=== PATIENT | female | born 1950 | race Caucasian/White ===

== ENCOUNTER → 2017-01-14 | Outpatient (CLI) | payer MEDICARE ==
[~2017-01-14] MED LIST: CARAFATE1 GM PO; FLONASE 50 MCG16 GM; LISINOPRIL 5MG T5 MG PO; MECLIZINE HYDRO25 MG PO; METOPROLOL TAR100 MG PO; RANITIDINE HCL300 M1 PO; ZITHROMAX Z PA250 MG PO
[2017-01-14 15:02] LABS: LYMPH % 47.3 % (10-50.0)
[2017-01-14 17:26] LABS: BUN 11 mg/dL (7-18)
[2017-01-14 17:58] LABS: GFR (ESTIMATED) 72 ML/MIN (59-)
--- NOTE | 2017-01-23 10:44 | RADIOLOGY REPORT PS360 ---
EXAM: CERVICAL SPINE 4 OR 5 VIEWS HISTORY: CERVICALGIA ORDERING PHYSICIAN: Neli SINGLETON PATIENT AGE: 66 years COMPARISON: None FINDINGS: Normal alignment. No fracture or dislocation. No lytic or blastic change. There is straightening of the cervical lordosis. 2 mm anterolisthesis C4 on 5. Degenerative disc disease seen 6 C7 and C7-T1. There are some mild endplate osteophytes at C6-C7 with facet and uncovertebral hypertrophy. There is bilateral foraminal narrowing at C6-C7. IMPRESSION: 1. Degenerative disc disease with facet hypertrophic change in bilateral foraminal narrowing at C6-C7 with mild degenerative disc disease at C7-T1 IMPRESSION: No acute finding
== END ==
LOC: LAB 14:37
PROVIDERS: Nurse Practitioner Family
DX: R55 Syncope and collapse (principal); R20.0 Anesthesia of skin; M54.2 Cervicalgia

== ENCOUNTER 2017-01-23 22:03 | Observation (INO) | payer MEDICARE ==
[~2017-01-23] VITALS: Ht 157.5 cm; Wt 64.6 kg
[2017-01-23 22:11] VITALS: BP 171/103
[2017-01-23] MEDS ORDERED: FLONASE 50 MCG16 GM (22:21)
[2017-01-23] MEDS ORDERED: METOPROLOL TAR100 MG PO (22:22)
[2017-01-23] MEDS ORDERED: CARAFATE1 GM PO (22:23)
[2017-01-23] MEDS ORDERED: RANITIDINE HCL300 M1 PO (22:23)
[2017-01-23] MEDS ORDERED: MECLIZINE HYDRO25 MG PO (22:24)
[2017-01-23 22:28] LABS: LYMPH # 8.4 K/mm3 (0.7-4.5); LYMPH % 59.6 % (10-50.0)
[2017-01-23 22:48] LABS: BUN 15 mg/dL (7-18); GFR (ESTIMATED) 55 ML/MIN (59-)
[2017-01-23 23:05] LABS: NEUTROPHILS 39 % (42-76)
--- NOTE | 2017-01-23 23:32 | Emergency Room Report ---
History of Present Illness Time Seen by [id number] Presenting Problem in Triage Pt arrived:Wheelchair Presenting Problem:C/O DIZZINESS AND FELT LIKE SHE WAS GONNA PASS OUT. STATES SHE HAS HAD THIS PROBLEM OFF AND ON FOR 8 MONTHS TO A YEAR. SAW PCP ON FRIDAY AND HAD LABS AND X RAYS. 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 N Clinical Suspician of Infection? N Mental Status: 1 - Regular (Normal Baseline) Sepsis Risk:Low Sepsis Risk Have you (or family members/close friends) recently traveled outside the [place]? N If Yes, where/when: Have you had exposure to infectious disease within the past month? N TB? Other? Specify: Source patient, RN notes reviewed, family, old records Exam Limitations no limitations Comment pt with episode of sudden dizzyness and near syncope with no loc and no chest pain or sense of arrthymia- no speech or visual sx and no motor changes but weak feeling in ext but no sz reported and no incont- no trauma - she has had eval and rx for dizzyness- Cardiac Chest Pain Chest pain indicative of cardiac No Timing/Duration this evening Severity moderate ALLERGIES Coded Allergies: codeine (NA-NAUSEA 01/23/17) Home Medications Reported Medications Fluticasone Propionate (Flonase 50 Mcg Nasal [place]) 1 SPRAY NA DAILY #16 Metoprolol Tartrate (Metoprolol 100MG) 100 MG PO BID #180 Sucralfate (Carafate) 1 GM PO DAILY #60 Ranitidine Hcl (Ranitidine 300MG) 300 MG PO QHS #30 Meclizine Hcl (Meclizine Hydrochloride) 25 MG PO TIDP PRN DIZZINESS History Medical History General CAD? No Angina: No [place]: No Hypertension? Yes Hyperlipidemia? No CHF? No DVT? No PE? No COPD? No Asthma? No Anemia? No GERD? Yes Gastric ulcers? No GI Bleed? No Hernia? No Thyroid Problems? No Hypothyroidism? No CVA? No Seizures? No Diabetes? No End Stage Renal Disease? No UTI? Yes Stones? No BPH? No GB Disease: No Nephritic Syndrome? No Asplenia? No Hepatitis? No Sickle Cell Disease? No Migraines? No Cataracts? No Glaucoma? No MRSA? No HIV? No TB? No Anxiety? No Depression? No Cancer? No Immunization Hx DT/Tetanus 1-4 YRS Surgical Hx Previous Surgery?Y Cholecystectomy APPY Spleen Procedures Social History Smoking Hx Smoker: Never Smoker Tobacco: No Alcohol Alcohol: No Drugs none Review of Systems All Other Systems Reviewed and Negative Constitutional see HPI, denies fever, weakness Eyes denies drainage, denies vision change ENT denies: ear discharge, epistaxis, throat pain. Respiratory denies cough, denies shortness of breath, denies wheezing Cardiovascular see HPI, denies chest pain, denies palpitations, denies syncope, other Gastrointestinal see HPI, denies abdominal pain, nausea, denies vomiting Genitourinary denies: dysuria, frequency, hesitancy, hematuria. Musculoskeletal denies back pain, denies joint pain, denies joint swelling, denies neck pain Skin denies rash Psychiatric/Neurological see HPI, denies headache, denies paresthesia, denies seizure, tingling Physical Exam Vital Signs Vital Signs Date Time Temp Pulse Resp B/P Pulse O2 O2 Flow FiO2 Ox Delivery Rate 01/23 2336 77 20 147/90 96 01/23 2304 69 20 151/86 95 01/23 2225 97.7 69 20 175/89 96 01/23 2211 97.7 73 20 171/103 97 - WBC >12,000 or <4,000 or 10% bands? 2 or more SIRS Criteria Met? B/P:147/90 MAP:125 Creatinine >2.0? UA output<0.5ml/kg/hr for 2 hrs? Platelet count >100,000? Lactate >2.0mmol/1? INR >1.2 or PTT > than 60 sec? Evidence of Organ Dysfunction? Provider documented clinical suspician of infection? N Sepsis Criteria Count: 1 Sepsis Risk: Low Sepsis Risk General Appearance no apparent distress Eye Exam - bilateral eye PERRL, bilateral eye EOMI Comment no nystagmus Ear, Nose, Throat normal ENT inspection, no evid of tongue biting Neck supple, sl bruit on lt Respiratory Status No: respiratory distress. Lung Sounds bilateral: lungs clear. 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 No Results/Orders Laboratory Tests 01/23/172205: Sodium 140, Potassium 4.1, Chloride 102, Carbon Dioxide 29, BUN 15, Creatinine 1.0, Estimated Creat Clear 57, Estimated GFR (MDRD) 55 L, Glucose 131 H, Calcium 9.6, Total Bilirubin 0.7, AST 50 H, ALT 62, Alkaline Phosphatase 96, Creatine Kinase 99, CK-MB (CK-2) Rel Index 0.5, CK and CKMB Interp < 0.5, Troponin I < 0.02, Total Protein 8.5 H, Albumin 4.0, Globulin 4.5 H, Albumin/ Globulin Ratio 0.9 L, WBC 14.1 H, RBC 5.24, Hgb 17.0 H, Hct 49.7 H, MCV 94.9 , RDW 12.9, Plt Count 294, MPV 8.9, Gran % 28.6 L, Gran # 4.0, Total Counted 100, Lymphocytes % 59.6 H, Monocytes % 6.2, Eosinophils % 4.5, Basophils % 1.0, Neutrophils 39 L, Lymphocytes (Manual) 51 H, Lymphocytes # 8.4 H, Monocytes ( Manual) 2, Monocytes # 0.9, Eosinophils # 0.6 H, Eosinophils # (Manual) 7 H, Basophils # 0.1, Basophils # (Manual) 1, Platelet Estimate NORMAL, Anisocytosis 1+, PUBS MCHC 34.2, MCH 32.5 H Current Medication Orders Sig/Pao Start time Last Medication Dose Route Stop Time Status Admin Sodium Chloride 10 ML PRN PRN 01/23 2230 AC IV 01/25 2216 Orders Procedure Date/time Status DIET-NOTHING BY MOUTH 01/24 B Active URINALYSIS/COMPLETE 01/230 Active Decision to admit 01/23 2335 Active CHEST(2 VIEWS-NOT PORTABLE) 01/[address] HEAD W/O CONTRAST 01/23 2219 Active 12 LEAD EKG-BESSON (INITIAL) 01/23 2217 Active ELECTROCARDIOGRAM REQUEST 01/[address] HEAD REQ 01/23 2217 Complete IV SALINE LOCK 01/23 2217 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
[2017-01-23 23:56] LABS: URINE BILIRUBIN - DIPSTICK NEGATIVE (NEG); URINE BLOOD NEGATIVE (NEG)
[2017-01-24] VITALS (7 sets, daily range): BP systolic 134–162; BP diastolic 71–85
--- NOTE | 2017-01-24 04:43 | RADIOLOGY REPORT PS360 ---
CHEST(2 VIEWS-NOT PORTABLE) HISTORY: Cough NEAR SYNCOPE ORDERING PHYSICIAN: Jj Harris MD PATIENT AGE: 66 years COMPARISON: None available FINDINGS: There is mild cardiomegaly without failure. Minimal atelectatic changes are present in the right lung base with patchy infiltrate in the right lower lobe. No obvious effusion. There is a pectus deformity. No acute bony anomalies. IMPRESSION: Right lower lobe infiltrate. Cardiomegaly
--- NOTE | 2017-01-24 05:27 | RADIOLOGY REPORT PS360 ---
CT HEAD W/O CONTRAST HISTORY: NEAR SYNCOPE AND DIZZY ORDERING PHYSICIAN: Jj Harris MD PATIENT AGE: 66 years COMPARISON: 03/04/2009 TECHNIQUE: Axial images obtained without contrast. Brain and bone windows reviewed. FINDINGS: No midline shift, mass effect, intracranial hemorrhage, hydrocephalus, or extra-axial fluid collection is evident. The calvarium has an unremarkable appearance. No mastoid effusion. Mild mucosal thickening ethmoid sinuses and frontal sinus on the right. IMPRESSION: Negative CT head without contrast. No acute finding.
--- NOTE | 2017-01-24 07:16 | Discharge Summary Standard ---
Demographics: Admit date: 01/23/17 Chief complaint: Lightheadedness PRIMARY DIAGNOSIS: near syncope Allergies: Coded Allergies: codeine (NA-NAUSEA 01/23/17) History of present illness: History of present illness: 66-year-old female with history of hypertension presented to the emergency department after a prolonged episode of feeling lightheaded as if she was about to pass out. Patient has been having similar episodes, although not quite as intense, for the last 6 months. Patient attributes some of these episodes to sinus related issues. She describes yesterday being out and about with her son. Towards the end of the day she was on her feet for a prolonged period of time and she began to feel lightheaded and had some difficulty carrying on conversation. When she felt as if she was going to pass out she sat down. Patient did recover but because of the prolonged nature of the event she was brought to the emergency department. Patient admitted to some headache. She denies chest pain or pressure. She does admit to a slight cough that has been nonproductive and some mild shortness of breath yesterday with exertion. In the emergency department her white blood cell count was elevated and she had a questionable LEFT carotid bruit. Patient was admitted for monitoring with orders for echocardiogram and carotid Doppler today. Since admission her chest x-ray has been read by the radiologist believes there is a RIGHT lower lobe infiltrate present. Patient denies fevers or chills. Past medical history: Family HX Family Hx Insignificant No Diabetes Yes CAD No Hypertension Yes Hyperlipidemia No Cancer Yes TB No Immunization HX DT/Tetanus 1-4 YRS Pneumonia Never Had TB Test in last year No General CAD? No Angina: No [place]: No Hypertension? Yes Hyperlipidemia? No CHF? No DVT? No PE? No COPD? No Asthma? No Anemia? No GERD? Yes Gastric ulcers? No GI Bleed? No Hernia? No Thyroid Problems? No Hypothyroidism? No CVA? No Seizures? No Diabetes? No UTI? Yes Stones? No BPH? No GB Disease: No Nephritic Syndrome? No Asplenia? No Hepatitis? No Sickle Cell Disease? No Migraines? No Cataracts? No Glaucoma? No MRSA? No HIV? No TB? No Anxiety? No Depression? No Cancer? No Past Surgical HX Previous Surgery?Y Cholecystectomy APPY Spleen Procedures Current home meds: Reported Medications Fluticasone Propionate (Flonase 50 Mcg Nasal [place]) 1 SPRAY NA DAILY #16 Metoprolol Tartrate (Metoprolol 100MG) 100 MG PO BID #180 Sucralfate (Carafate) 1 GM PO DAILY #60 Ranitidine Hcl (Ranitidine 300MG) 300 MG PO QHS #30 Meclizine Hcl (Meclizine Hydrochloride) 25 MG PO TIDP PRN DIZZINESS Social Hx: Smoking HX Tobacco No Are you/the child exposed to second-hand smoke: Yes Alcohol Alcohol: No Hx of Drug Use Drug Use? No Review of systems: Constitutional see HPI. Respiratory see HPI. Cardiovascular see HPI Gastrointestinal/Abdominal no symptoms reported Genitourinary no symptoms reported. Musculoskeletal no symptoms reported. Neurological Yes: no symptoms reported. Exam: Lab data for last 24 hours: Laboratory Tests 01/23/17 2349: Urine Color YELLOW, Urine Appearance CLEAR, Urine pH 6.0, Ur Specific [place] <= 1.005, Urine Protein NEGATIVE, Urine Ketones NEGATIVE, Urine Blood NEGATIVE, Urine Nitrate NEGATIVE, Urine Bilirubin NEGATIVE, Urine Urobilinogen 0.2, Ur Leukocyte Esterase NEGATIVE, Urine WBC OCC, Ur Squamous Epith Cells 3-5, Urine Bacteria 1+, Urine Glucose NEGATIVE 01/23/17 2206: Sodium 140, Potassium 4.1, Chloride 102, Carbon Dioxide 29, BUN 15, Creatinine 1.0, Estimated Creat Clear 57, Estimated GFR (MDRD) 55 L, Glucose 131 H, Calcium 9.6, Total Bilirubin 0.7, AST 50 H, ALT 62, Alkaline Phosphatase 96, Creatine Kinase 99, CK-MB (CK-2) Rel Index 0.5, CK and CKMB Interp < 0.5, Troponin I < 0.02, Total Protein 8.5 H, Albumin 4.0, Globulin 4.5 H, Albumin/ Globulin Ratio 0.9 L, WBC 14.1 H, RBC 5.24, Hgb 17.0 H, Hct 49.7 H, MCV 94.9 , RDW 12.9, Plt Count 294, MPV 8.9, Gran % 28.6 L, Gran # 4.0, Total Counted 100, Lymphocytes % 59.6 H, Monocytes % 6.2, Eosinophils % 4.5, Basophils % 1.0, Neutrophils 39 L, Lymphocytes (Manual) 51 H, Lymphocytes # 8.4 H, Monocytes ( Manual) 2, Monocytes # 0.9, Eosinophils # 0.6 H, Eosinophils # (Manual) 7 H, Basophils # 0.1, Basophils # (Manual) 1, Platelet Estimate NORMAL, Anisocytosis 1+, PUBS MCHC 34.2, MCH 32.5 H Admission vital signs: 1ST Vital Signs Result Date Time Pulse Ox 97 01/23 2211 B/P 171/103 01/23 2211 Temp 97.7 01/23 2211 Pulse 73 01/23 2211 Resp 20 01/23 2211 O2 Delivery ROOM AIR 01/24 0045 Exam General appearance: normal appearance, alert, awake Eyes: normal exam, anicteric ENT: normal exam, mucous membranes moist Neck: normal inspection, non-tender, no carotid bruit, no JVD Cardiovascular: normal exam Respiratory: normal exam, clear to auscultation ABD: normal exam, non-distended, normal bowel sounds Genitourinary: normal voiding & quantity Extremities: normal exam Hospital Course Hospital Course: Patient was admitted. She persistently endorsed feeling of being off balance when she walks. Echocardiogram and carotid Dopplers were ordered. Patient did not have any arrhythmia. Despite her feelings of being off balance or lightheaded symptoms did improve. Once testing was completed patient was discharged home and will follow-up in the office as an outpatient. Lisinopril 5 mg was started as her blood pressure was quite elevated on admission and I believe this is contributing to some of her symptoms Because of the presence of infiltrate on chest x-ray patient was given Rocephin and azithromycin in the hospital only be discharged home on azithromycin to continue as an outpatient Medications Medications: Discharge meds are as noted. Follow up Follow up in office in: 3 DAYS with: Steven ECHEVERRIA,Jj
[2017-01-24] MEDS ORDERED: LISINOPRIL 5MG T5 MG PO (07:17)
[2017-01-24] MEDS ORDERED: ZITHROMAX Z PA250 MG PO (07:18)
--- NOTE | 2017-01-24 07:36 | PHARMACY CLINIC NOTE ---
Patient Demographics Patient Demographics Admission date: 01/24/17 Date: 01/24/17 Time: 0736 Allergies Coded Allergies: codeine (NA-NAUSEA 01/23/17) HEIGHT- FT: 5 IN: 2.00 K.638 VTE General Information Labs: Laboratory Tests 01/23 2206 Hematology Hgb (12.2 - 16.2 g/dL) 17.0 H Hct (37.0 - 47.0 %) 49.7 H Plt Count (142 - 424 K/mm3) 294 Disclaimer The following section includes nursing documentation that has been pulled in for pharmacy review. Patient's VTE score: 1 Patient's VTE Risk: VERY LOW RISK Clinical trial participant? No VTE prophylaxis [id number] VTE prophylaxis ordered? Yes Type of prophylaxis/treatment: HUMBERTO at 0736
--- NOTE | 2017-01-24 18:45 | RADIOLOGY REPORT PS360 ---
PROCEDURE: 2-D M-mode and color Doppler study INDICATIONS FOR THE TEST: Chest pain COPD Heart MurmurX Tobacco Smoking Palpitations Fatigue SyncopeX Edema Hypertension Diabetes Mellitus Rheumatic Fever SOB EDWARDS Obesity Hyperlipidemia Family History HD Additional History DIZZINESS PATIENT INFORMATION HEIGHT: 62 WEIGHT:144 GENDER: Female B/P:171/103 2-D/M-MODE INTERPRETATION: 2-D MEASUREMENTS OBSERVED VALUES IN CMS Right Ventricular Dimension (RVDd) 1.9 Interventricular Septum (Thickness)(IVsd) 1.3 Left Ventricular Internal Dimensions(LVIDd) 4.5 Left Ventricular Posterior Wall (Thickness)(LVPWd) 1.2 Aortic Root 2.3 Aortic Cusp Separation 1.9 Left Atrial Dimensions (LAD) 3.8 2D 1. Left atrium is qualitatively moderately enlarged, left ventricle is normal size, there is mild concentric left ventricular hypertrophy, visually estimated ejection fraction 55% with no obvious regional wall motion abnormality. 2. The right atrium is mildly enlarged, the right ventricle is normal size and contractility. 3. The aortic valve is thickened and calcified, leaflet continue to display good mobility. 4. The mitral and tricuspid valve leaflets are minimally thickened. 5. The pulmonic valve is poorly visualized 6. No significant pericardial effusion noted. DOPPLER INTERROGATION: Doppler interrogation of the aortic, mitral and tricuspid valve reveals presence of mild mitral and tricuspid regurgitation, tricuspid and enteric velocity insufficient for calculation of the right ventricular systolic pressure, grade 1 diastolic dysfunction seen without tissue Doppler evidence of raised left atrial pressure, the aortic outflow velocities mildly increased, does not represent any significant aortic stenosis or aortic insufficiency. CONCLUSION: 1. Biatrial enlargement, normal left ventricular size, mild concentric left ventricular hypertrophy, visually estimated ejection fraction of 55% with no obvious regional wall motion abnormality, grade 1 diastolic dysfunction seen without tissue Doppler evidence of raised left atrial pressure. 2. Thickened and calcified aortic valve without any significant aortic stenosis aortic insufficiency. 3. Mild mitral and tricuspid regurgitation. 4. No significant pericardial effusion noted.
--- OUTSIDE RECORDS SUMMARY | 2017-03-06 08:03 | External Medical Summary Rpt ---
Demographics Preferred Language [place]ive[place] Marital Status Unknown Congregational Affiliation Unknown Race Unknown Ethnic Group Unknown Author KEYSHA Mendez Address Unknown Phone Immunization No patient found.
--- OUTSIDE RECORDS SUMMARY | 2017-03-06 08:03 | External Medical Summary Rpt ---
Author Author [employer], [employer] Organization [employer] Address Unknown Phone Unavailable Results CBC W Auto Differential panel in Blood Observa Value Referen Units Interpr Notes Date tion ce etation Range Basophils 0 - 0.2 K/MM3 Normal No Jan 23 inform2016 [#/volume on in 10:06 PM ] in source Blood by data Automated count Basophils 0.1 - 2.0 % Normal No Jan 23 / informati 2016 leukocyte on in 10:06 PM s in source Blood by data Automated count Eosinophi 0.0 - 0.4 K/mm3 High No Jan 23 ls informati 2016 [#/volume on in 10:06 PM ] in source Blood by data Automated count Eosinophi 0.1 - % Normal No Jan 23 ls/100 12.0 inform2016 leukocyte on in 10:06 PM s in source Blood by data Automated count Granulocy 1.8 - 7.8 K/mm3 Normal No Jan 23 salud ati 2016 [#/volume on in 10:06 PM ] in source Blood by data Automated count Granulocy 37.0 - % Low No Jan 23 salud/100 80.0 informati 2016 leukocyte on in 10:06 PM s in source Blood by data Automated count Hematocri 37.0 - % High Jan 23 t [Volume 47.0 ati 2016 on in 10:06 PM Fraction] source of Blood data Hemoglobi 12.2 - g/dL High No Jan 23 n 16.2 ati 2016 [Mass/vol on in 10:06 PM ume] in source Blood data Lymphocyt 0.7 - 4.5 K/mm3 High No Jan 23 es informati 2016 [#/volume on in 10:06 PM ] in source Unspecifi data ed specimen by Automated count Lymphocyt 10 - 50.0 % High No Jan 23 es informati 2016 [#/volume on in 10:06 PM ] in source Unspecifi data ed specimen by Automated count Erythrocy 27 - 31.2 pg High No Jan 23 te mean ati 2017 corpuscul on in 10:06 PM ar source hemoglobi data n [Entitic mass] Erythrocy 31.8 - g/dl Normal No Jan 23 te mean 35.4 2016 corpuscul on in 10:06 PM ar source hemoglobi data n concentra tion [Mass/vol ume] by Automated count Erythrocy 82.2 - fl Normal No Jan 23 te mean 97.8 2016 corpuscul on in 10:06 PM ar volume source [Entitic data volume] by Automated count Monocytes 0.1 - 1.0 K/mm3 Normal No Jan 232016 [#/volume on in 10:06 PM ] in source Blood by data Automated count Monocytes 1.7 - 9.3 % Normal No Jan 232016 leukocyte on in 10:06 PM s in source Blood by data Automated count Platelet 7.4 - fl Normal No Jan 23 mean 10.4 2016 volume on in 10:06 PM [Entitic source volume] data in Blood by Automated count Platelets 142 - 424 K/mm3 Normal No Jan 232016 [#/volume on in 10:06 PM ] in source Blood data Erythrocy 4.2 - 5.4 M/mm3 Normal No Jan 23 salud 2016 [#/volume on in 10:06 PM ] in source Amniotic data fluid Erythrocy 11.5 - % Normal No Jan 23 te 17.5 2016 distribut on in 10:06 PM ion width source [Entitic data volume] by Automated count Leukocyte 4.8 - K/MM3 High No Jan 23 s 10.8 2016 [#/volume on in 10:06 PM ] in source Blood data Differential panel, method unspecified - Observa Value Referen Units Interpr Notes Date tion ce etation Range Anisocy 1+ No No No No Jan 23 tosis informa informa informa inform2016 [Presen tion in tion in tion in tion in 10:06 ce] in source source source source PM Blood data data data data Basophils 0 - 1 % Normal No Jan 232016 leukocyte on in 10:06 PM s in source Blood by data Automated count Eosinophi 0 - 3 % High No Jan 23 ls/100 2016 leukocyte on in 10:06 PM s in source Blood by data Manual count LYMPH 51 10 - 50 % High Jan 232016 tion in 10:06 source PM data Monocytes 2 - 9 % Normal No Jan 232016 leukocyte on in 10:06 PM s in source Blood by data Automated count Platele NORMAL No No No Jan 23 ts informa informa informa inform2016 [Presen tion in tion in tion in tion in 10:06 ce] in source source source source PM Blood data data data data by Light microsc opy Neutrophi 42 - 76 % Low No Jan 23 ls 2016 [#/volume on in 10:06 PM ] in source Blood by data Automated count Cells No #CELLS No Jan 23 Counted informati informati informati 2016 Total [#] on in on in on in 10:06 PM in Blood source source source data data data Cobalamin (Vitamin B12) [Mass/volume] in Serum Observa Value Referen Units Interpr Notes etation Range Cobalamin 211 - 946 pg/mL No Jan 14 (Vitamin informati at: CB 2016 2:39 B12) on in - [facility] PM [Mass/vol source ume] in data [address] [address] [address] [place], [place] [id number] Slot Key Person: Felipe Stinson PhD, Phone: [phone] CBC W Auto Differential panel in Blood Observa Value Referen Units Interpr Notes etation Range Basophils 0 - 0.2 K/MM3 Normal No Jan 142016 2:39 [#/volume on in PM ] in source Blood by data Automated count Basophils 0.1 - 2.0 % Normal No Jan 14 informati 2016 2:39 leukocyte on in PM s in source Blood by data Automated count Eosinophi 0.0 - 0.4 K/mm3 High No Jan 14 ls informati 2016 2:39 [#/volume on in PM ] in source Blood by data Automated count Eosinophi 0.1 - % Normal No Jan 14 12.0 informati 2016 2:39 leukocyte on in PM s in source Blood by data Automated count Granulocy 1.8 - 7.8 K/mm3 Normal No Jan 14 salud informati 2016 2:39 [#/volume on in PM ] in source Blood by data Automated count Granulocy 37.0 - % Low No Jan 14 salud 80.0 informati 2016 2:39 leukocyte on in PM s in source Blood by data Automated count Hematocri 37.0 - % High No Jan 14 t [Volume 47.0 informati 2017 2:39 on in PM Fraction] source of Blood data Hemoglobi 12.2 - g/dL Normal No Jan 14 n 16.2 informati 2017 2:39 [Mass/vol on in PM ume] in source Blood data Lymphocyt 0.7 - 4.5 K/mm3 High No Jan 14 es informati 2017 2:39 [#/volume on in PM ] in source Unspecifi data ed specimen by Automated count Lymphocyt 10 - 50.0 % Normal No Jan 14 es informati 2017 2:39 [#/volume on in PM ] in source Unspecifi data ed specimen by Automated count Erythrocy 27 - 31.2 pg High No Jan 14 te mean informati 2017 2:39 corpuscul on in PM ar source hemoglobi data n [Entitic mass] Erythrocy 31.8 - g/dl Normal Jan 14 te mean 35.4 informati 2017 2:39 corpuscul on in PM ar source hemoglobi data n concentra tion [Mass/vol ume] by Automated count Erythrocy 82.2 - fl Normal No Jan 14 te mean 97.8 informati 2017 2:39 corpuscul on in PM ar volume source [Entitic data volume] by Automated count Monocytes 0.1 - 1.0 K/mm3 Normal No Jan 14 informati 2017 2:39 [#/volume on in PM ] in source Blood by data Automated count Monocytes 1.7 - 9.3 % Normal No Jan 14 /100 informati 2017 2:39 leukocyte on in PM s in source Blood by data Automated count Platelet 7.4 - fl Normal No Jan 14 mean 10.4 informati 2017 2:39 volume on in PM [Entitic source volume] data in Blood by Automated count Platelets 142 - 424 K/mm3 Normal No Jan 14 informati 2017 2:39 [#/volume on in PM ] in source Blood data Erythrocy 4.2 - 5.4 M/mm3 Normal No Jan 14 salud informati 2017 2:39 [#/volume on in PM ] in source Amniotic data fluid Erythrocy 11.5 - % Normal No Jan 14 te 17.5 informati 2017 2:39 distribut on in PM ion width source [Entitic data volume] by Automated count Leukocyte 4.8 - K/MM3 Normal No Dec 15 s 10.8 informati 2017 2:39 [#/volume on in PM ] in source Blood data
--- OUTSIDE RECORDS SUMMARY | 2017-03-06 08:03 | External Medical Summary Rpt ---
Author Author , YUSEF HOLBROOK Address Unknown Phone [email or web address] Purpose Continuity of Care Document - 01-14-2017 through 2016 Problems Code Diagnosis DOS Provider Status R42 DIZZINESS AND GIDDINESS R55 SYNCOPE AND COLLAPSE R92.8 OTH ABN AND INCONCLUSIV E FINDINGS ON DX IMAGING OF BREAST Results Labs Lab Lab Date Result Refere Interp Status Commen Order Detail nces retati t Range on Differential panel, method unspecified - (01-23-2017 22:06) Anisocy 1+ complet tosis 017 ed [Presen 22:06 ce] in Blood LYMPH 51 % 10% - High complet 017 50% ed 22:06 Platele NORMAL complet ts 017 ed [Presen 22:06 ce] in Blood by Light microsc opy
--- OUTSIDE RECORDS SUMMARY | 2017-03-06 08:03 | External Medical Summary Rpt ---
[...] [facility] PM [Mass/vol source ume] in data [address] [address] [address] [place], [place] [id number] Base Ply Hand: Felipe Stinson PhD, Phone: [phone] CBC W Auto Differential panel in [...]
--- OUTSIDE RECORDS SUMMARY | 2017-03-06 08:03 | External Medical Summary Rpt ---
Demographics Preferred Language Luxembourgish Marital Status Unknown Yazdanism Affiliation Unknown Race Unknown Ethnic Group Unknown Author KEYSHA Mendez Address Unknown Phone Immunization No patient found.
--- OUTSIDE RECORDS SUMMARY | 2017-03-06 08:03 | External Medical Summary Rpt ---
Author Author , YUSEF HOLBROOK Address Unknown Phone [email or web address] Purpose Continuity of Care Document - 01-14-2017 [...]
--- OUTSIDE RECORDS SUMMARY | 2017-03-06 08:03 | External Medical Summary Rpt ---
Author Author [employer] Address Unknown Phone Unavailable Purpose Continuity of Care Document - through 2016
--- OUTSIDE RECORDS SUMMARY | 2017-03-06 08:15 | External Medical Summary Rpt ---
Author Author , YUSEF HOLBROOK Address Unknown Phone [email or web address] Purpose Continuity of Care Document - 01-14-2017 through 2016 Results Labs Lab Lab Date Result Refere [...]
--- OUTSIDE RECORDS SUMMARY | 2017-03-06 08:15 | External Medical Summary Rpt ---
Author Author , YUSEF HOLBROOK Address Unknown Phone [email or web address] Purpose Continuity of Care Document - 01-14-2017 [...]
--- OUTSIDE RECORDS SUMMARY | 2017-03-06 08:15 | External Medical Summary Rpt ---
Demographics Preferred Language Khmer Marital Status Unknown Confucianist Affiliation Unknown Race Unknown Ethnic Group Unknown Author KEYSHA Mendez Address Unknown Phone Immunization No patient found.
--- OUTSIDE RECORDS SUMMARY | 2017-03-06 08:15 | External Medical Summary Rpt ---
[...] [facility] PM [Mass/vol source ume] in data [address] [address] [address] [place], [place] [id number] Blowing Weasand: Felipe Stinson PhD, Phone: [phone] CBC W Auto Differential panel in [...]
--- OUTSIDE RECORDS SUMMARY | 2017-03-06 08:15 | External Medical Summary Rpt ---
[...] [facility] PM [Mass/vol source ume] in data [address] [address] [address] [place], [place] [id number] Metal Mover: Felipe Stinson PhD, Phone: [phone] CBC W Auto Differential panel in [...]
--- OUTSIDE RECORDS SUMMARY | 2017-03-06 08:15 | External Medical Summary Rpt ---
Demographics Preferred Language Turkmen Marital Status Unknown Lutheran Affiliation Unknown Race Unknown Ethnic Group Unknown Author KEYSHA Mendez Address Unknown Phone Immunization No patient found.
== END 2017-01-24 17:40 | disposition home or self-care (01) ==
LOC: ER 22:03 → 2ND 23:42 → ER 23:42 → 2ND 01-24 00:43
PROVIDERS: Emergency Medicine
DX: R55 Syncope and collapse (principal); I10 Essential (primary) hypertension
CPT/HCPCS: G0378; J0456

== ENCOUNTER 2017-03-25 19:03 | Emergency (ER) | payer MEDICARE ==
[~2017-03-25] VITALS: Ht 157.5 cm; Wt 64.4 kg
--- OUTSIDE RECORDS SUMMARY | 2017-03-25 19:13 | External Medical Summary Rpt | CCD ---
Author Author , KEYSHA HOLBROOK Address Unknown Phone [email or web address] Purpose Continuity of Care Document - 01-14-2017 [...]
--- OUTSIDE RECORDS SUMMARY | 2017-03-25 19:13 | External Medical Summary Rpt | CCD ---
Author Author , KEYSHA HOLBROOK Address Unknown Phone [email or web address] Purpose Continuity of Care Document - 01-14-2017 [...]
--- OUTSIDE RECORDS SUMMARY | 2017-03-25 19:14 | External Medical Summary Rpt | CCD ---
Demographics Preferred Language Bulgarian Marital Status Unknown Samaritan Affiliation Unknown Race Unknown Ethnic Group Unknown Author Author , YUSEF HOLBROOK Address Unknown Phone Immunization No patient found.
--- OUTSIDE RECORDS SUMMARY | 2017-03-25 19:14 | External Medical Summary Rpt | CCD ---
Demographics Preferred Language Emirati Marital Status Unknown Roman Catholic Affiliation Unknown Race Unknown Ethnic Group Unknown Author Author , YUSEF HOLBROOK Address Unknown Phone Immunization No patient found.
--- OUTSIDE RECORDS SUMMARY | 2017-03-25 19:14 | External Medical Summary Rpt ---
[...] 2.0 % Normal No Jan 23 / inform2016 leukocyte on in 10:06 PM s [...] [facility] PM [Mass/vol source ume] in data [address] [address] [address] [place], [place] [id number] [employer] Combination Teacher: Felipe Stinson PhD, Phone: [phone] CBC W Auto Differential panel in [...]
--- OUTSIDE RECORDS SUMMARY | 2017-03-25 19:14 | External Medical Summary Rpt ---
[...] [facility] PM [Mass/vol source ume] in data [address] [address] [address] [place], [place] [id number] Concrete Pavement Installer: Felipe Stinson PhD, Phone: [phone] CBC W Auto Differential panel in [...]
[2017-03-25] MEDS ORDERED: CETIRIZINE HCL10 MG PO (19:45)
[2017-03-25] MEDS ORDERED: SINGULAIR 10 MG10 MG PO (19:45)
[2017-03-25] MEDS ORDERED: FLEXERIL10 MG PO (20:21)
[2017-03-25] MEDS ORDERED: MOTRIN 400MG.400 MG PO (20:21)
--- NOTE | 2017-03-25 20:22 | Urgent Treatment Center Report ---
History of Present Issue Date/Time Seen by Provider 03/25/171957 Visit Reason Pt arrived:Walked Presenting Problem:STATES RIGHT LEG AND SIDE PAIN. PT STATES SHE THINKS SHE PULLED A MUSCLE Location if Accident: Onset of symptoms date/time:/ or onset unknown for:MEDICAL HX UNKNOWN Have you (or family members/close friends) recently traveled outside the [place]? N If Yes, where/when: Have you had exposure to infectious disease within the past month? TB? Other? Specify: State that she bought a new exercise bike and she tried it out a couple of days ago States that she thinks she may have pulled a muscle in her side State that she is having pain in her right side that runs down through her right leg State that she has been taking over the counter Mortin and using heat and it has helped a little with the pain State that family told her she may need to come in and get something for her muscle spasms she has been having ALLERGIES Coded Allergies: codeine (NA-NAUSEA 01/23/17) Home Medications Active Scripts LISINOPRIL (Lisinopril) 5 MG PO DAILY #30 TAB Prov: 01/24/17 Reported Medications Fluticasone Propionate (Flonase 50 Mcg Nasal [place]) 1 SPRAY NA DAILY #16 Metoprolol Tartrate (Metoprolol 100MG) 100 MG PO BID #180 Sucralfate (Carafate) 1 GM PO DAILY #60 Ranitidine Hcl (Ranitidine 300MG) 300 MG PO QHS #30 Montelukast Sodium (Singulair 10MG) 10 MG PO DAILY CETIRIZINE HCL (Cetirizine 10MG) 10 MG PO DAILY History Medical History General CAD? No Angina: No MO: No Hypertension? Yes Hyperlipidemia? No CHF? No DVT? No PE? No COPD? No Asthma? No Anemia? No GERD? Yes Gastric ulcers? No GI Bleed? No Hernia? No Thyroid Problems? No Hypothyroidism? No CVA? No Seizures? No Diabetes? No UTI? Yes Stones? No BPH? No GB Disease: No Nephritic Syndrome? No Asplenia? No Hepatitis? No Sickle Cell Disease? No Arthritis? No Migraines? No Cataracts? No Glaucoma? No MRSA? No HIV? No TB? No Anxiety? No Depression? No Cancer? No More? No Immunization HX DT/Tetanus 1-4 YRS Pneumonia Never Had Surgical Hx Previous Surgery?Y Cholecystectomy APPY Spleen Procedures Family History Family HX Diabetes Yes CAD No Hypertension Yes Hyperlipidemia No Cancer Yes TB No Social History Smoking Hx Smoker: Never Smoker Tobacco: No Alcohol Alcohol: No Review of Systems All Other Systems Reviewed and Negative Musculoskeletal muscle pain, muscle stiffness Physical Exam Vital Signs Vital Signs Date Time Temp Pulse Resp B/P Pulse O2 O2 Flow FiO2 Ox Delivery Rate 03/25 97.9 68 20 177/79 98 General Appearance normal appearance, WD/WN, no apparent distress Ear, Nose, Throat normal ENT inspection Respiratory Status Yes: trachea midline, chest symmetrical, non tender chest. No: respiratory distress. Lung Sounds bilateral: normal breath sounds, lungs clear. Cardiovascular normal exam, regular rate/rhythm Gastrointestinal normal bowel sounds, normal exam, non tender, no guarding, no rebound Extremities Muscle pain that is radiating down from right rib area down into her right leg that began after she bought new exercise bike and she used it a couple of days ago. State that bike rocks from side to side and she is having what she describes as spasmotic muscle pain in her side radiating down into leg, denies pain with breathing, denies falls, states pain worsens with movement, has been using heating pad and Motrin and has helped with pain, Neurologic alert, normal exam, oriented x 3 Medical Decision Making LABS/Meds/Orders Pt receiving controlled substance in ED? No Results/Orders Current Medication Orders Sig/Pao Start time Last Medication Dose Route Stop Time Status Admin Ketorolac 60 MG ONCE ONE 03/25 2015 DC 03/25 Tromethamine IM 03/25 Orphenadrine Citrate 60 MG ONCE ONE 03/25 2015 DC 03/25 IM 03/25 Orphenadrine Citrate 0 .STK-MED ONE 03/25 2013 DC .ROUTE Ketorolac 0 .STK-MED ONE 03/25 2012 DC Tromethamine .ROUTE Departure Departure Time of Disposition 2024 Disposition DC Home or Self Care(routine) Clinical Impression Primary Impression: Muscle strain Condition STABLE Referrals Neli Rodriguez (Family): 2 Days-Call Office if no improvement in pain Patient Instructions Abdominal Muscle Strain, DI for Muscle Spasm, DI for Muscle Strain, Muscle Strain Additional Instructions Take medication as prescribed Alternate heat and cold on area Follow up with family doctor in 2-3 days if no improvement in symptoms No exercise for next week to allow area time to heal however you may get up and walk to keep from becoming stiff If you began to have more severe pain, trouble breathing or any worsening of pain go straight to the ER Discharge Counseling Counseled pt/family regarding diagnosis, medications/RX, home care, follow up needs Prescriptions Current Visit Scripts Cyclobenzaprine Hcl (Flexeril) 10 MG PO TID #15 TAB Ibuprofen (MOTRIN 400MG) 400 MG PO Q6HP PRN pain #40 TAB at 2032
[2017-03-25 20:32] VITALS: BP 177/79
== END 2017-03-25 20:35 | disposition home or self-care (01) ==
LOC: ER 19:03 → UTC 19:12
DX: S76.911A Strain of unspecified muscles, fascia and tendons at thigh level, right thigh, initial encounter (principal); X50.3XXA Overexertion from repetitive movements, initial encounter; Y93.A1 Activity, exercise machines primarily for cardiorespiratory conditioning; Y92.009 Unspecified place in unspecified non-institutional (private) residence as the place of occurrence of the external cause